=== PATIENT | male | born 1975 | race Two or more races ===

== ENCOUNTER 2021-04-10 09:12 | Emergency (ER) | payer OTHER ==
[~2021-04-10] VITALS: Ht 175.3 cm; Wt 95.3 kg
[2021-04-10 09:12] VITALS: BP 149/102
== END 2021-04-10 11:42 | disposition home or self-care (01) ==
LOC: ER 09:12
DX: S09.90XA Unspecified injury of head, initial encounter (principal); I10 Essential (primary) hypertension; W19.XXXA Unspecified fall, initial encounter; Y93.66 Activity, soccer; Y92.89 Other specified places as the place of occurrence of the external cause; Y99.8 Other external cause status
CPT/HCPCS: 70450